=== PATIENT | male | born 1935 | race Caucasian/White ===

== ENCOUNTER 2020-06-16 15:26 | Inpatient (IN) ==
[2020-06-16] MEDS ORDERED: 0.9 % Sodium Chloride 1,000 ML IVC ONE (15:33)
[2020-06-16] MEDS ORDERED: Azithromycin 500 MG in 0.9 % Sodium Chloride 250 ML IVPB ONE (16:03)
[2020-06-16] MEDS ORDERED: cefTRIAXone 1,000 MG in Water for inj. (sterile) 10 ML IVP ONE (16:03)
[2020-06-16] MEDS ORDERED: Furosemide 40 MG/4 ML VIAL IVP ONE (16:03)
[2020-06-16 16:07] LABS: Basophils % 0.1 %; Hematocrit 38.8 % (37.5-50.1); Hemoglobin 13.1 g/dL (12.9-16.9); Immature Granulocytes % 0.4 % (0-4); Lymphocytes # 0.7 K/mcL (0.6-4.6); Lymphocytes % 5.6 %; Mean Corpuscular HGB Conc 33.8 g/dL (31.6-35.5); Mean Corpuscular Hemoglobin 31.6 pg (28.0-33.3); Mean Corpuscular Volume 93.7 fL (83.0-100.0); Mean Platelet Volume 10.3 fL (9.4-12.4); Monocytes # 0.7 K/mcL (0.0-1.3); Monocytes % 5.4 %; Neutrophils # 11.3 K/mcL (1.6-8.9); Platelet Count 375 K/mcL (140-400); Red Blood Count 4.14 M/mcL (4.19-5.50); Red Cell Distribution Width 12.7 % (11.5-14.5); Segmented Neutrophils % 88.5 %; White Blood Count 12.8 K/mcL (4.3-11.1)
[2020-06-16] MEDS ORDERED: Isovue-370 500 ML BOTTLE IVP ONE (16:21)
[2020-06-16 16:34] LABS: BUN/Creatinine Ratio 19 (6-26); Blood Urea Nitrogen 16 mg/dL (8-23); Calcium 10.4 mg/dL (8.6-10.3); Carbon Dioxide 24 mEq/L (23-29); Chloride 101 mEq/L (98-107); Glucose 209 mg/dL (70-105); Osmolality,Calculated 291 (280-300); Potassium 3.9 mEq/L (3.5-5.1); Sodium 137 mEq/L (136-145); eGFR For African Americans > 60 (> 60); eGFR For Non-African Americans > 60 (> 60)
[2020-06-16] MEDS ORDERED: Dexamethasone 4 MG/ML VIAL IVP STA (19:32)
[2020-06-16] MEDS ORDERED: Acetaminophen 325 MG TABLET PO PRN (20:28)
[2020-06-16] MEDS ORDERED: Ondansetron 4 MG/2 ML VIAL IVP PRN (20:28)
[2020-06-16] MEDS ORDERED: Naloxone 0.4 MG/ML INJ IVP PRN (20:28)
[2020-06-16] MEDS ORDERED: *HR* OxyCODONE Immed Rel 5 MG TABLET PO PRN (20:28)
[2020-06-16] MEDS ORDERED: *HR* Dextrose 50 % in Water (Vial) 50 ML VIAL IVP PRN (20:35)
[2020-06-16] MEDS ORDERED: Dextrose Gel 15 GM/37.5 ML TUBE PO PRN ×2 (20:35)
[2020-06-16] MEDS ORDERED: D5% in Water 1,000 ML IVC PRN (20:35)
[2020-06-16] MEDS ORDERED: *HR* Dabigatran 150 MG CAPSULE PO SCH (20:45)
[2020-06-16] MEDS: Insulin LISPRO 300 UNITS/3 ML VIAL SQ SCH (22:38)
[2020-06-16] MEDS: Insulin DETEMIR 100 UNIT/ML X5UNITS SQ SCH (22:40)
[2020-06-16 22:45] LABS: ABG Base Excess 2 mEq/L (-2 to 3); ABG HCO3 26 mEq/L (21-27); ABG Oxygen Saturation 98 % (95-98); ABG PCO2 38 mmHg (35-45); ABG PH 7.45 pH Units (7.32-7.45); ABG PO2 99 mmHg (85-104); ABG TCO2 27 mEq/L (20-26); Blood Gas Modality BiLevel
[2020-06-16] MEDS ORDERED: Perflutren Lipid Microsphere 1.3 ML in 0.9 % Sodium Chloride 8.7 ML IVP PRN (23:32)
[2020-06-16] MEDS ORDERED: Aspirin Enteric Coated 325 MG Tablet PO ONE (23:37)
[2020-06-17 05:51] LABS: Basophils % 0.1 %; Hematocrit 37.5 % (37.5-50.1); Hemoglobin 12.2 g/dL (12.9-16.9); Immature Granulocytes % 0.7 % (0-4); Lymphocytes # 0.4 K/mcL (0.6-4.6); Lymphocytes % 4.8 %; Mean Corpuscular HGB Conc 32.5 g/dL (31.6-35.5); Mean Corpuscular Hemoglobin 30.6 pg (28.0-33.3); Mean Platelet Volume 10.2 fL (9.4-12.4); Monocytes # 0.3 K/mcL (0.0-1.3); Monocytes % 3.5 %; Platelet Count 285 K/mcL (140-400); Red Blood Count 3.99 M/mcL (4.19-5.50); Red Cell Distribution Width 12.8 % (11.5-14.5); Segmented Neutrophils % 90.9 %; White Blood Count 8.8 K/mcL (4.3-11.1)
[2020-06-17 06:10] LABS: INR 1.5; Prothrombin Time 16.9 Seconds (9.4-12.1)
[2020-06-17 06:14] LABS: Alanine Aminotransferase 84 Units/L (7-52); Albumin 3.2 g/dL (3.5-5.7); Albumin/Globulin Ratio 1.1 (1.1-2.2); Alkaline Phosphatase 134 Units/L (34-104); Aspartate Amino Transferase 134 Units/L (13-39); BUN/Creatinine Ratio 28 (6-26); Bilirubin,Total 1.2 mg/dL (0.3-1.0); Blood Urea Nitrogen 20 mg/dL (8-23); Calcium 9.6 mg/dL (8.6-10.3); Carbon Dioxide 25 mEq/L (23-29); Chloride 105 mEq/L (98-107); Globulin 2.9 g/dL (2.4-3.5); Glucose 173 mg/dL (70-105); Lactate Dehydrogenase 503 Units/L (140-271); Magnesium 2.3 mg/dL (1.6-2.6); Osmolality,Calculated 295 (280-300); Phosphorous 2.5 mg/dL (2.7-4.5); Potassium 3.7 mEq/L (3.5-5.1); Sodium 139 mEq/L (136-145); Total Protein 6.1 g/dL (6.4-8.9); eGFR For African Americans > 60 (> 60); eGFR For Non-African Americans > 60 (> 60)
[2020-06-17] MEDS ORDERED: *HR* Heparin 5,000 UNIT/ML VIAL IVP PRN ×5 (06:45→23:00)
[2020-06-17] MEDS ORDERED: Heparin 25,000UNIT/250ML 1/2NS 25,000 UNIT/250 ML IV.SOLN IVC SCH (06:45)
[2020-06-17] MEDS: Aspirin Enteric Coated 81 MG Tablet PO SCH (08:08)
[2020-06-17] MEDS: Dexamethasone 4 MG/ML VIAL IVP SCH (08:09)
[2020-06-17] MEDS: Furosemide 40 MG/4 ML VIAL IVP SCH (08:09)
[2020-06-17] MEDS: Insulin LISPRO 300 UNITS/3 ML VIAL SQ SCH ×4 (08:44→20:14)
[2020-06-17] MEDS ORDERED: cefTRIAXone 1,000 MG in 0.9 % Sodium Chloride Mini Bag 100 ML IVP SCH (09:00)
[2020-06-17 10:16] LABS: C-Reactive Protein 183 mg/L (Less than 10)
[2020-06-17 10:17] LABS: Heparin anti-factor XA UFH < 0.04 IU/mL (0.30-0.70)
[2020-06-17 10:18] LABS: INR 1.4; Prothrombin Time 15.6 Seconds (9.4-12.1)
[2020-06-17] MEDS: Heparin 25,000UNIT/250ML 1/2NS 25,000 UNIT/250 ML IV.SOLN IVC SCH (10:23)
[2020-06-17] MEDS: Metoprolol XL (24 HR) Succ 25 MG TAB.ER.24H PO SCH (14:32)
[2020-06-17] MEDS ORDERED: Azithromycin 500 MG in 0.9 % Sodium Chloride 250 ML IVPB SCH (15:00)
[2020-06-17] MEDS: *HR* Heparin 5,000 UNIT/ML VIAL IVP PRN ×2 (17:03→22:37)
[2020-06-17] MEDS: Lactobacillus 1 EACH CAP.SPRINK PO SCH (19:43)
[2020-06-17] MEDS: Insulin DETEMIR 100 UNIT/ML X5UNITS SQ SCH (19:43)
[2020-06-18 01:35] LABS: BUN/Creatinine Ratio 34 (6-26); Blood Urea Nitrogen 25 mg/dL (8-23); Calcium 9.5 mg/dL (8.6-10.3); Carbon Dioxide 28 mEq/L (23-29); Chloride 104 mEq/L (98-107); Glucose 136 mg/dL (70-105); Osmolality,Calculated 298 (280-300); Potassium 3.3 mEq/L (3.5-5.1); Sodium 141 mEq/L (136-145); eGFR For African Americans > 60 (> 60); eGFR For Non-African Americans > 60 (> 60)
[2020-06-18] MEDS: *HR* Heparin 5,000 UNIT/ML VIAL IVP PRN (05:17)
[2020-06-18] MEDS: lisinopriL 5 MG TABLET PO SCH (09:45)
[2020-06-18] MEDS: Isosorbide MONOnitrate (24 HR) 30 MG TAB.ER.24H PO SCH (09:45)
[2020-06-18] MEDS: Finasteride 5 MG TABLET PO SCH (09:45)
[2020-06-18] MEDS: Aspirin Enteric Coated 81 MG Tablet PO SCH (09:45)
[2020-06-18] MEDS: Metoprolol XL (24 HR) Succ 25 MG TAB.ER.24H PO SCH (09:46)
[2020-06-18] MEDS: *HR* Digoxin 0.125 MG TABLET PO SCH (09:46)
[2020-06-18] MEDS: Dexamethasone 4 MG/ML VIAL IVP SCH (09:47)
[2020-06-18] MEDS: Lactobacillus 1 EACH CAP.SPRINK PO SCH ×2 (09:47→20:20)
[2020-06-18] MEDS: Furosemide 40 MG/4 ML VIAL IVP SCH (09:48)
[2020-06-18] MEDS: Insulin LISPRO 300 UNITS/3 ML VIAL SQ SCH ×4 (09:49→20:20)
[2020-06-18] MEDS: Heparin 25,000UNIT/250ML 1/2NS 25,000 UNIT/250 ML IV.SOLN IVC SCH (10:00)
[2020-06-18] MEDS ORDERED: *HR* Heparin 5,000 UNIT/ML VIAL IVP PRN ×2 (14:56→15:02)
[2020-06-18] MEDS ORDERED: Heparin 25,000UNIT/250ML 1/2NS 25,000 UNIT/250 ML IV.SOLN IVC SCH (15:02)
[2020-06-18] MEDS: cefTRIAXone 1,000 MG in Water for inj. (sterile) 10 ML IVP SCH (16:37)
[2020-06-18] MEDS: Spironolactone 25 MG TABLET PO SCH (16:37)
[2020-06-18] MEDS: *HR* Enoxaparin 80 MG/0.8 ML SYRINGE SQ SCH (16:37)
[2020-06-18] MEDS: Azithromycin 250 MG TABLET PO SCH (16:37)
[2020-06-18] MEDS: Insulin DETEMIR 100 UNIT/ML X5UNITS SQ SCH (20:21)
[2020-06-19] MEDS: *HR* Enoxaparin 80 MG/0.8 ML SYRINGE SQ SCH (06:10)
[2020-06-19 06:17] LABS: BUN/Creatinine Ratio 38 (6-26); Blood Urea Nitrogen 30 mg/dL (8-23); Carbon Dioxide 29 mEq/L (23-29); Chloride 104 mEq/L (98-107); Glucose 129 mg/dL (70-105); Osmolality,Calculated 302 (280-300); Potassium 3.9 mEq/L (3.5-5.1); Sodium 142 mEq/L (136-145); eGFR For African Americans > 60 (> 60); eGFR For Non-African Americans > 60 (> 60)
[2020-06-19] MEDS: Metoprolol XL (24 HR) Succ 25 MG TAB.ER.24H PO SCH (07:49)
[2020-06-19] MEDS: Aspirin Enteric Coated 81 MG Tablet PO SCH (07:49)
[2020-06-19] MEDS: Lactobacillus 1 EACH CAP.SPRINK PO SCH ×2 (07:49→19:57)
[2020-06-19] MEDS: Spironolactone 25 MG TABLET PO SCH (07:50)
[2020-06-19] MEDS: lisinopriL 5 MG TABLET PO SCH (07:51)
[2020-06-19] MEDS: *HR* Digoxin 0.125 MG TABLET PO SCH (07:52)
[2020-06-19] MEDS: Finasteride 5 MG TABLET PO SCH (07:52)
[2020-06-19] MEDS: Isosorbide MONOnitrate (24 HR) 30 MG TAB.ER.24H PO SCH (07:52)
[2020-06-19] MEDS: Furosemide 40 MG/4 ML VIAL IVP SCH (07:53)
[2020-06-19] MEDS: Dexamethasone 4 MG/ML VIAL IVP SCH (07:53)
[2020-06-19] MEDS: Insulin LISPRO 300 UNITS/3 ML VIAL SQ SCH ×4 (07:53→19:58)
[2020-06-19] MEDS: cefTRIAXone 1,000 MG in Water for inj. (sterile) 10 ML IVP SCH (16:43)
[2020-06-19] MEDS: Azithromycin 250 MG TABLET PO SCH (16:43)
[2020-06-19] MEDS ORDERED: 0.9 % Sodium Chloride 250 ML ONE (17:28)
[2020-06-19] MEDS ORDERED: *HR* Warfarin 2.5 MG TABLET PO ONE (18:00)
[2020-06-19] MEDS ORDERED: Warfarin perPT PO PRN (18:00)
[2020-06-19] MEDS: *HR* Enoxaparin 40 MG/0.4 ML SYRINGE SQ SCH (19:58)
[2020-06-19] MEDS: Insulin DETEMIR 100 UNIT/ML X5UNITS SQ SCH (19:58)
[2020-06-19] MEDS ORDERED: Apixaban 5 MG TABLET PO SCH (21:00)
[2020-06-20] MEDS ORDERED: *HR* Enoxaparin 40 MG/0.4 ML SYRINGE SQ SCH (06:00)
[2020-06-20 06:07] LABS: INR 1.2; Prothrombin Time 14.3 Seconds (9.4-12.1)
[2020-06-20 06:24] LABS: BUN/Creatinine Ratio 41 (6-26); Blood Urea Nitrogen 28 mg/dL (8-23); Calcium 9.5 mg/dL (8.6-10.3); Carbon Dioxide 30 mEq/L (23-29); Chloride 104 mEq/L (98-107); Glucose 68 mg/dL (70-105); Osmolality,Calculated 294 (280-300); Potassium 4.1 mEq/L (3.5-5.1); Sodium 140 mEq/L (136-145); eGFR For African Americans > 60 (> 60); eGFR For Non-African Americans > 60 (> 60)
[2020-06-20] MEDS: Insulin LISPRO 300 UNITS/3 ML VIAL SQ SCH ×4 (07:46→20:48)
[2020-06-20] MEDS: Dexamethasone 4 MG/ML VIAL IVP SCH (07:59)
[2020-06-20] MEDS: Lactobacillus 1 EACH CAP.SPRINK PO SCH ×2 (07:59→20:19)
[2020-06-20] MEDS: Spironolactone 25 MG TABLET PO SCH (07:59)
[2020-06-20] MEDS: Aspirin Enteric Coated 81 MG Tablet PO SCH (07:59)
[2020-06-20] MEDS: Isosorbide MONOnitrate (24 HR) 30 MG TAB.ER.24H PO SCH (08:00)
[2020-06-20] MEDS: *HR* Digoxin 0.125 MG TABLET PO SCH (08:00)
[2020-06-20] MEDS: Furosemide 40 MG/4 ML VIAL IVP SCH (08:00)
[2020-06-20] MEDS: *HR* Enoxaparin 40 MG/0.4 ML SYRINGE SQ SCH ×2 (08:00→20:18)
[2020-06-20] MEDS: Finasteride 5 MG TABLET PO SCH (08:01)
[2020-06-20] MEDS: Metoprolol XL (24 HR) Succ 25 MG TAB.ER.24H PO SCH (08:01)
[2020-06-20] MEDS: lisinopriL 5 MG TABLET PO SCH (08:01)
[2020-06-20] MEDS: cefTRIAXone 1,000 MG in Water for inj. (sterile) 10 ML IVP SCH (14:41)
[2020-06-20] MEDS: Azithromycin 250 MG TABLET PO SCH (14:42)
[2020-06-20] MEDS ORDERED: 0.9 % Sodium Chloride 250 ML ONE (17:49)
[2020-06-20] MEDS ORDERED: *HR* Warfarin 2.5 MG TABLET PO ONE (18:00)
[2020-06-20] MEDS ORDERED: Furosemide 20 MG/2 ML VIAL IVP ONE (20:00)
[2020-06-20] MEDS: Insulin DETEMIR 100 UNIT/ML X5UNITS SQ SCH (20:19)
[2020-06-21 07:32] LABS: INR 1.3; Prothrombin Time 14.4 Seconds (9.4-12.1)
[2020-06-21 07:47] LABS: BUN/Creatinine Ratio 38 (6-26); Blood Urea Nitrogen 30 mg/dL (8-23); Calcium 9.5 mg/dL (8.6-10.3); Carbon Dioxide 34 mEq/L (23-29); Chloride 100 mEq/L (98-107); Glucose 172 mg/dL (70-105); Osmolality,Calculated 298 (280-300); Potassium 4.1 mEq/L (3.5-5.1); Sodium 139 mEq/L (136-145); eGFR For African Americans > 60 (> 60); eGFR For Non-African Americans > 60 (> 60)
[2020-06-21] MEDS: Dexamethasone 4 MG/ML VIAL IVP SCH (08:45)
[2020-06-21] MEDS: Furosemide 40 MG/4 ML VIAL IVP SCH (08:45)
[2020-06-21] MEDS: lisinopriL 5 MG TABLET PO SCH (08:46)
[2020-06-21] MEDS: Finasteride 5 MG TABLET PO SCH (08:46)
[2020-06-21] MEDS: Isosorbide MONOnitrate (24 HR) 30 MG TAB.ER.24H PO SCH (08:46)
[2020-06-21] MEDS: *HR* Digoxin 0.125 MG TABLET PO SCH (08:46)
[2020-06-21] MEDS: Aspirin Enteric Coated 81 MG Tablet PO SCH (08:46)
[2020-06-21] MEDS: *HR* Enoxaparin 40 MG/0.4 ML SYRINGE SQ SCH ×2 (08:46→20:51)
[2020-06-21] MEDS: Lactobacillus 1 EACH CAP.SPRINK PO SCH ×2 (08:46→20:51)
[2020-06-21] MEDS: Insulin LISPRO 300 UNITS/3 ML VIAL SQ SCH ×4 (08:47→20:52)
[2020-06-21] MEDS: Azithromycin 250 MG TABLET PO SCH (15:33)
[2020-06-21] MEDS: cefTRIAXone 1,000 MG in Water for inj. (sterile) 10 ML IVP SCH (15:33)
[2020-06-21] MEDS ORDERED: *HR* Warfarin 3 MG TABLET PO ONE (18:00)
[2020-06-21] MEDS: Insulin DETEMIR 100 UNIT/ML X5UNITS SQ SCH (20:52)
[2020-06-22 06:08] LABS: INR 1.3; Prothrombin Time 14.6 Seconds (9.4-12.1)
[2020-06-22 06:33] LABS: BUN/Creatinine Ratio 46 (6-26); Blood Urea Nitrogen 38 mg/dL (8-23); Calcium 9.6 mg/dL (8.6-10.3); Carbon Dioxide 30 mEq/L (23-29); Chloride 102 mEq/L (98-107); Glucose 212 mg/dL (70-105); Osmolality,Calculated 303 (280-300); Potassium 4.4 mEq/L (3.5-5.1); Sodium 139 mEq/L (136-145); eGFR For African Americans > 60 (> 60); eGFR For Non-African Americans > 60 (> 60)
[2020-06-22] MEDS: lisinopriL 5 MG TABLET PO SCH (07:47)
[2020-06-22] MEDS: Lactobacillus 1 EACH CAP.SPRINK PO SCH ×2 (07:47→20:25)
[2020-06-22] MEDS: Finasteride 5 MG TABLET PO SCH (07:47)
[2020-06-22] MEDS: Aspirin Enteric Coated 81 MG Tablet PO SCH (07:48)
[2020-06-22] MEDS: *HR* Digoxin 0.125 MG TABLET PO SCH (07:48)
[2020-06-22] MEDS: Dexamethasone 4 MG/ML VIAL IVP SCH (07:48)
[2020-06-22] MEDS: Isosorbide MONOnitrate (24 HR) 30 MG TAB.ER.24H PO SCH (07:48)
[2020-06-22] MEDS: Furosemide 40 MG/4 ML VIAL IVP SCH (07:49)
[2020-06-22] MEDS: *HR* Enoxaparin 40 MG/0.4 ML SYRINGE SQ SCH (07:49)
[2020-06-22] MEDS: Insulin LISPRO 300 UNITS/3 ML VIAL SQ SCH ×4 (07:59→20:25)
[2020-06-22] MEDS: Azithromycin 250 MG TABLET PO SCH (15:16)
[2020-06-22] MEDS: cefTRIAXone 1,000 MG in Water for inj. (sterile) 10 ML IVP SCH (15:16)
[2020-06-22] MEDS ORDERED: Insulin Regular, Human 100 UNIT/ML SQ ONE (16:49)
[2020-06-22] MEDS: Insulin DETEMIR 100 UNIT/ML X5UNITS SQ SCH (17:51)
[2020-06-22] MEDS ORDERED: *HR* Warfarin 3 MG TABLET PO ONE (18:00)
[2020-06-22] MEDS: *HR* Dabigatran 150 MG CAPSULE PO SCH (20:25)
[2020-06-22] MEDS ORDERED: Insulin DETEMIR 100 UNIT/ML X5UNITS SQ ONE (21:12)
[2020-06-23] MEDS: Dexamethasone 4 MG/ML VIAL IVP SCH (07:32)
[2020-06-23] MEDS: Furosemide 40 MG/4 ML VIAL IVP SCH (07:34)
[2020-06-23] MEDS: *HR* Dabigatran 150 MG CAPSULE PO SCH ×2 (07:34→19:57)
[2020-06-23] MEDS: Lactobacillus 1 EACH CAP.SPRINK PO SCH ×2 (07:35→19:57)
[2020-06-23] MEDS: lisinopriL 5 MG TABLET PO SCH (07:35)
[2020-06-23] MEDS: *HR* Digoxin 0.125 MG TABLET PO SCH ×2 (07:35→08:06)
[2020-06-23] MEDS: Aspirin Enteric Coated 81 MG Tablet PO SCH (07:35)
[2020-06-23] MEDS: Finasteride 5 MG TABLET PO SCH (07:35)
[2020-06-23] MEDS: Isosorbide MONOnitrate (24 HR) 30 MG TAB.ER.24H PO SCH (07:35)
[2020-06-23] MEDS: Insulin LISPRO 300 UNITS/3 ML VIAL SQ SCH ×4 (07:43→19:51)
[2020-06-23 09:35] LABS: Basophils % 0.3 %; Eosinophils % 0.1 %; Hematocrit 44.9 % (37.5-50.1); Immature Granulocytes % 1.6 % (0-4); Lymphocytes # 1.3 K/mcL (0.6-4.6); Lymphocytes % 9.7 %; Mean Corpuscular HGB Conc 33.4 g/dL (31.6-35.5); Mean Corpuscular Hemoglobin 31.5 pg (28.0-33.3); Mean Corpuscular Volume 94.3 fL (83.0-100.0); Mean Platelet Volume 11.1 fL (9.4-12.4); Monocytes # 0.9 K/mcL (0.0-1.3); Nucleated Red Blood Cells 0.1 /100 WBC (0); Platelet Count 465 K/mcL (140-400); Red Blood Count 4.76 M/mcL (4.19-5.50); Red Cell Distribution Width 12.7 % (11.5-14.5); Segmented Neutrophils % 81.3 %
[2020-06-23 09:36] LABS: INR 1.2; Prothrombin Time 13.7 Seconds (9.4-12.1)
[2020-06-23 09:53] LABS: BUN/Creatinine Ratio 53 (6-26); Blood Urea Nitrogen 38 mg/dL (8-23); Calcium 10.1 mg/dL (8.6-10.3); Carbon Dioxide 27 mEq/L (23-29); Chloride 105 mEq/L (98-107); Glucose 90 mg/dL (70-105); Osmolality,Calculated 299 (280-300); Potassium 4.3 mEq/L (3.5-5.1); Sodium 140 mEq/L (136-145); eGFR For African Americans > 60 (> 60); eGFR For Non-African Americans > 60 (> 60)
[2020-06-23 10:16] LABS: Neutrophils # 10.8 K/mcL (1.6-8.9); White Blood Count 13.3 K/mcL (4.3-11.1)
[2020-06-23] MEDS: Insulin DETEMIR 100 UNIT/ML X5UNITS SQ SCH (19:57)
[2020-06-24 02:40] LABS: BUN/Creatinine Ratio 60 (6-26); Blood Urea Nitrogen 46 mg/dL (8-23); Calcium 9.5 mg/dL (8.6-10.3); Carbon Dioxide 25 mEq/L (23-29); Chloride 105 mEq/L (98-107); Glucose 173 mg/dL (70-105); Osmolality,Calculated 300 (280-300); Potassium 4.9 mEq/L (3.5-5.1); Sodium 137 mEq/L (136-145); eGFR For African Americans > 60 (> 60); eGFR For Non-African Americans > 60 (> 60)
[2020-06-24] MEDS: Insulin LISPRO 300 UNITS/3 ML VIAL SQ SCH ×4 (09:22→21:54)
[2020-06-24] MEDS: Aspirin Enteric Coated 81 MG Tablet PO SCH (09:24)
[2020-06-24] MEDS: Finasteride 5 MG TABLET PO SCH (09:24)
[2020-06-24] MEDS: Lactobacillus 1 EACH CAP.SPRINK PO SCH ×2 (09:24→21:54)
[2020-06-24] MEDS: *HR* Digoxin 0.125 MG TABLET PO SCH (09:24)
[2020-06-24] MEDS: *HR* Dabigatran 150 MG CAPSULE PO SCH ×2 (09:24→21:52)
[2020-06-24] MEDS: Dexamethasone 4 MG/ML VIAL IVP SCH (09:25)
[2020-06-24] MEDS: Isosorbide MONOnitrate (24 HR) 30 MG TAB.ER.24H PO SCH (09:42)
[2020-06-24] MEDS: lisinopriL 5 MG TABLET PO SCH (09:43)
[2020-06-24] MEDS: Furosemide 40 MG/4 ML VIAL IVP SCH (11:46)
[2020-06-24] MEDS: Furosemide 20 MG TABLET PO SCH (17:39)
[2020-06-24] MEDS: Insulin DETEMIR 100 UNIT/ML X5UNITS SQ SCH (21:54)
[2020-06-25 05:04] LABS: BUN/Creatinine Ratio 49 (6-26); Blood Urea Nitrogen 40 mg/dL (8-23); Calcium 9.1 mg/dL (8.6-10.3); Carbon Dioxide 27 mEq/L (23-29); Chloride 107 mEq/L (98-107); Glucose 154 mg/dL (70-105); Osmolality,Calculated 299 (280-300); Potassium 4.9 mEq/L (3.5-5.1); Sodium 138 mEq/L (136-145); eGFR For African Americans > 60 (> 60); eGFR For Non-African Americans > 60 (> 60)
[2020-06-25] MEDS: Insulin LISPRO 300 UNITS/3 ML VIAL SQ SCH ×4 (09:57→20:49)
[2020-06-25] MEDS: Lactobacillus 1 EACH CAP.SPRINK PO SCH ×2 (10:09→20:48)
[2020-06-25] MEDS: *HR* Digoxin 0.125 MG TABLET PO SCH (10:09)
[2020-06-25] MEDS: Finasteride 5 MG TABLET PO SCH (10:09)
[2020-06-25] MEDS: Aspirin Enteric Coated 81 MG Tablet PO SCH (10:09)
[2020-06-25] MEDS: *HR* Dabigatran 150 MG CAPSULE PO SCH ×2 (10:09→20:48)
[2020-06-25] MEDS: Furosemide 20 MG TABLET PO SCH (10:10)
[2020-06-25] MEDS: Isosorbide MONOnitrate (24 HR) 30 MG TAB.ER.24H PO SCH (10:10)
[2020-06-25] MEDS: Spironolactone 25 MG TABLET PO SCH (10:11)
[2020-06-25] MEDS: lisinopriL 5 MG TABLET PO SCH (10:13)
[2020-06-25] MEDS: Insulin DETEMIR 100 UNIT/ML X5UNITS SQ SCH ×2 (10:14→20:49)
[2020-06-25] MEDS: Dexamethasone 4 MG/ML VIAL IVP SCH (10:20)
[2020-06-26] MEDS: Insulin LISPRO 300 UNITS/3 ML VIAL SQ SCH (10:13)
[2020-06-26] MEDS: *HR* Dabigatran 150 MG CAPSULE PO SCH (11:11)
[2020-06-26] MEDS: Furosemide 20 MG TABLET PO SCH (11:11)
[2020-06-26] MEDS: Isosorbide MONOnitrate (24 HR) 30 MG TAB.ER.24H PO SCH (11:11)
[2020-06-26] MEDS: Aspirin Enteric Coated 81 MG Tablet PO SCH (11:11)
[2020-06-26] MEDS: Lactobacillus 1 EACH CAP.SPRINK PO SCH (11:11)
[2020-06-26] MEDS: lisinopriL 5 MG TABLET PO SCH (11:12)
[2020-06-26] MEDS: *HR* Digoxin 0.125 MG TABLET PO SCH (11:12)
[2020-06-26] MEDS: Spironolactone 25 MG TABLET PO SCH (11:12)
[2020-06-26] MEDS: Dexamethasone 4 MG/ML VIAL IVP SCH (11:13)
[2020-06-26] MEDS: Finasteride 5 MG TABLET PO SCH (11:13)
[2020-06-26] MEDS: Insulin DETEMIR 100 UNIT/ML X5UNITS SQ SCH (11:26)
[2020-06-26 17:30] VITALS: BP 99/63
== END 2020-06-26 17:48 | disposition home health service (06) | DRG 871 ==
LOC: EMEROOARM 15:26 → 2NENU 15:26 → SUATTDRO 20:28 → 2NENU 22:02 → SUATTDRO 06-17 18:37
PROVIDERS: ADMIT Student in an Organized Health Care Education/Training Program; ATTEND Internal Medicine

== ENCOUNTER 2022-05-01 12:10 | Observation (INO) ==
[2022-05-01 13:36] LABS: Basophils % 0.1 %; Hematocrit 45.7 % (37.5-50.1); Immature Granulocytes % 0.5 % (0-4); Lymphocytes # 1.7 K/mcL (0.6-4.6); Lymphocytes % 11.1 %; Mean Corpuscular HGB Conc 32.8 g/dL (31.6-35.5); Mean Corpuscular Hemoglobin 31.2 pg (28.0-33.3); Mean Platelet Volume 9.6 fL (9.4-12.4); Monocytes # 1.6 K/mcL (0.0-1.3); Monocytes % 10.8 %; Neutrophils # 11.7 K/mcL (1.6-8.9); Platelet Count 284 K/mcL (140-400); Red Blood Count 4.81 M/mcL (4.19-5.50); Red Cell Distribution Width 14.8 % (11.5-14.5); Segmented Neutrophils % 77.5 %; White Blood Count 15.1 K/mcL (4.3-11.1)
[2022-05-01 13:59] LABS: Calcium 10.4 mg/dL (8.6-10.3); Potassium 3.5 mEq/L (3.5-5.1)
[2022-05-01 14:05] LABS: Troponin I 0.06 ng/mL (< 0.04)
[2022-05-01] MEDS ORDERED: Iopamidol - 370 500 ML MLS IVP ONE (14:13)
[2022-05-01 14:19] LABS: Bilirubin,Urine Negative (Negative); Blood,Urine Trace (Negative); Clarity,Urine Clear (Clear); Color,Urine Light-Yellow (Yellow); Glucose,Urine (UA) Normal (Normal); Hyaline Casts,Urine Few per lpf (None Seen); Ketones,Urine Negative (Negative); Leukocyte Esterase,Urine Negative (Negative); Mucus,Urine Few per lpf (None-Few); Nitrite,Urine Negative (Negative); Protein,Urine Trace mg/dL (Neg-Trace); RBC,Urine 0-3 per hpf (0-3); Specific Gravity,Urine 1.011 (1.010-1.025); Squamous Epithelial Cell,Urine Few per hpf (None-Few); Urobilinogen,Urine Normal (Normal); WBC,Urine 0-3 per hpf (0-3)
[2022-05-01 14:28] LABS: Albumin/Globulin Ratio 1.2 (1.1-2.2); Bilirubin,Direct 0.4 mg/dL (0.0-0.2); Bilirubin,Indirect 1.2 mg/dL (0.0-1.0); Bilirubin,Total 1.6 mg/dL (0.3-1.0); Globulin 3.3 g/dL (2.4-3.5); Total Protein 7.3 g/dL (6.4-8.9)
[2022-05-01 15:34] LABS: INR 2.2; Prothrombin Time 24.3 Seconds (9.4-12.1)
[2022-05-01] MEDS ORDERED: Morphine Sulfate 2 MG/ML SYRINGE IVP ONE (16:59)
[2022-05-01] MEDS ORDERED: Naloxone 0.4 MG/ML INJ IVP PRN (18:09)
[2022-05-01] MEDS ORDERED: Dextrose Gel 15 GM/37.5 ML TUBE PO PRN ×2 (18:12)
[2022-05-01] MEDS ORDERED: D5% in Water 1,000 ML IVC PRN (18:12)
[2022-05-01] MEDS ORDERED: *HR* Dextrose 50 % in Water (Syg) 50 ML SYRINGE IVP PRN (18:12)
[2022-05-01] MEDS: Insulin LISPRO 300 UNITS/3 ML VIAL SUBQ SCH (21:02)
[2022-05-02] MEDS: Insulin LISPRO 300 UNITS/3 ML VIAL SUBQ SCH ×4 (07:19→21:44)
[2022-05-02] MEDS: Metoprolol XL (24 HR) Succ 25 MG TAB.ER.24H PO SCH (08:41)
[2022-05-02] MEDS ORDERED: lisinopriL 5 MG TABLET PO SCH (09:00)
[2022-05-02] MEDS: Spironolactone 25 MG TABLET PO SCH (09:21)
[2022-05-02] MEDS: Finasteride 5 MG TABLET PO SCH (09:21)
[2022-05-02] MEDS: Bumetanide 1 MG TABLET PO SCH ×2 (09:22→21:43)
[2022-05-02] MEDS: Apixaban 2.5 MG TABLET PO SCH (09:22)
[2022-05-02 10:21] LABS: Basophils % 0.2 %; Eosinophils % 0.2 %; Hematocrit 45.5 % (37.5-50.1); Hemoglobin 14.7 g/dL (12.9-16.9); Immature Granulocytes % 0.5 % (0-4); Lymphocytes # 1.8 K/mcL (0.6-4.6); Lymphocytes % 14.9 %; Mean Corpuscular HGB Conc 32.3 g/dL (31.6-35.5); Mean Corpuscular Hemoglobin 30.9 pg (28.0-33.3); Mean Corpuscular Volume 95.8 fL (83.0-100.0); Mean Platelet Volume 9.7 fL (9.4-12.4); Monocytes # 1.5 K/mcL (0.0-1.3); Monocytes % 12.1 %; Neutrophils # 8.8 K/mcL (1.6-8.9); Platelet Count 295 K/mcL (140-400); Red Blood Count 4.75 M/mcL (4.19-5.50); Red Cell Distribution Width 14.5 % (11.5-14.5); Segmented Neutrophils % 72.1 %; White Blood Count 12.3 K/mcL (4.3-11.1)
[2022-05-02 10:45] LABS: Albumin 3.5 g/dL (3.5-5.7); Albumin/Globulin Ratio 1.1 (1.1-2.2); Bilirubin,Direct 0.4 mg/dL (0.0-0.2); Bilirubin,Total 1.4 mg/dL (0.3-1.0); Globulin 3.2 g/dL (2.4-3.5); Total Protein 6.7 g/dL (6.4-8.9)
[2022-05-02 10:48] LABS: Calcium 9.7 mg/dL (8.6-10.3); Potassium 3.4 mEq/L (3.5-5.1)
[2022-05-02 12:30] LABS: Bilirubin,Urine Negative (Negative); Blood,Urine Moderate (Negative); Clarity,Urine Clear (Clear); Color,Urine Light-Yellow (Yellow); Glucose,Urine (UA) Normal (Normal); Ketones,Urine Negative (Negative); Leukocyte Esterase,Urine Negative (Negative); Mucus,Urine Few per lpf (None-Few); Nitrite,Urine Negative (Negative); PH,Urine 6.5 pH Units (5.0-8.0); Protein,Urine Negative (Neg-Trace); RBC,Urine 50-100 per hpf (0-3); Specific Gravity,Urine 1.014 (1.010-1.025); Squamous Epithelial Cell,Urine Few per hpf (None-Few); Urobilinogen,Urine Normal (Normal)
[2022-05-02] MEDS: cefTRIAXone 1,000 MG in 0.9 % Sodium Chloride 10 ML IVP SCH (16:00)
[2022-05-02] MEDS: polyethylene glycoL 3350 17 GM POWD.PACK PO PRN (17:04)
[2022-05-02 20:23] LABS: Estimated Average Glucose 143 mg/dl; Hemoglobin A1C 6.6 %
[2022-05-02] MEDS: Isosorbide MONOnitrate (24 HR) 30 MG TAB.ER.24H PO SCH (21:10)
[2022-05-02] MEDS: Insulin DETEMIR 100 UNIT/ML X5UNITS SUBQ SCH (21:44)
[2022-05-02] MEDS: Sennosides/Docusate Sodium TABLET PO SCH (21:44)
[2022-05-03 03:20] LABS: Basophils % 0.1 %; Eosinophils # 0.1 K/mcL (0.0-0.6); Eosinophils % 0.8 %; Hematocrit 44.6 % (37.5-50.1); Hemoglobin 14.6 g/dL (12.9-16.9); Immature Granulocytes % 0.4 % (0-4); Lymphocytes # 2.1 K/mcL (0.6-4.6); Lymphocytes % 17.2 %; Mean Corpuscular HGB Conc 32.7 g/dL (31.6-35.5); Mean Corpuscular Hemoglobin 31.1 pg (28.0-33.3); Mean Corpuscular Volume 95.1 fL (83.0-100.0); Mean Platelet Volume 9.8 fL (9.4-12.4); Monocytes # 1.6 K/mcL (0.0-1.3); Monocytes % 13.1 %; Neutrophils # 8.2 K/mcL (1.6-8.9); Platelet Count 295 K/mcL (140-400); Red Blood Count 4.69 M/mcL (4.19-5.50); Red Cell Distribution Width 14.6 % (11.5-14.5); Segmented Neutrophils % 68.4 %
[2022-05-03 03:38] LABS: Albumin 3.3 g/dL (3.5-5.7); Albumin/Globulin Ratio 1.1 (1.1-2.2); Bilirubin,Total 1.1 mg/dL (0.3-1.0); Calcium 9.4 mg/dL (8.6-10.3); Globulin 3.1 g/dL (2.4-3.5); Potassium 3.3 mEq/L (3.5-5.1); Total Protein 6.4 g/dL (6.4-8.9)
[2022-05-03] MEDS: Insulin LISPRO 300 UNITS/3 ML VIAL SUBQ SCH ×4 (07:53→22:03)
[2022-05-03] MEDS: Isosorbide MONOnitrate (24 HR) 30 MG TAB.ER.24H PO SCH (10:23)
[2022-05-03] MEDS: Apixaban 2.5 MG TABLET PO SCH (10:23)
[2022-05-03] MEDS: Spironolactone 25 MG TABLET PO SCH (10:24)
[2022-05-03] MEDS: *HR* Digoxin 0.125 MG TABLET PO SCH (10:24)
[2022-05-03] MEDS: lisinopriL 5 MG TABLET PO SCH (10:25)
[2022-05-03] MEDS: Aspirin 81 MG TAB.CHEW PO SCH (10:25)
[2022-05-03] MEDS: Finasteride 5 MG TABLET PO SCH (10:25)
[2022-05-03] MEDS: Bumetanide 1 MG TABLET PO SCH ×2 (10:25→22:03)
[2022-05-03] MEDS: Sennosides/Docusate Sodium TABLET PO SCH ×2 (10:27→22:03)
[2022-05-03] MEDS: Metoprolol XL (24 HR) Succ 25 MG TAB.ER.24H PO SCH (10:27)
[2022-05-03] MEDS: polyethylene glycoL 3350 17 GM POWD.PACK PO PRN (10:33)
[2022-05-03] MEDS ORDERED: *HR* HYDROcodone/Acet 5/325 mg TABLET PO PRN (14:08)
[2022-05-03] MEDS: cefTRIAXone 1,000 MG in 0.9 % Sodium Chloride 10 ML IVP SCH (18:33)
[2022-05-03] MEDS: Insulin DETEMIR 100 UNIT/ML X5UNITS SUBQ SCH (22:04)
[2022-05-04 02:51] LABS: Basophils % 0.2 %; Eosinophils # 0.1 K/mcL (0.0-0.6); Hematocrit 42.7 % (37.5-50.1); Hemoglobin 14.2 g/dL (12.9-16.9); Immature Granulocytes % 0.5 % (0-4); Lymphocytes % 16.3 %; Mean Corpuscular HGB Conc 33.3 g/dL (31.6-35.5); Mean Corpuscular Hemoglobin 31.6 pg (28.0-33.3); Mean Corpuscular Volume 94.9 fL (83.0-100.0); Mean Platelet Volume 9.9 fL (9.4-12.4); Monocytes # 1.4 K/mcL (0.0-1.3); Monocytes % 11.2 %; Neutrophils # 8.8 K/mcL (1.6-8.9); Platelet Count 298 K/mcL (140-400); Red Cell Distribution Width 14.2 % (11.5-14.5); Segmented Neutrophils % 70.8 %; White Blood Count 12.5 K/mcL (4.3-11.1)
[2022-05-04 03:04] LABS: Calcium 9.3 mg/dL (8.6-10.3)
[2022-05-04] MEDS ORDERED: Bisacodyl 10 MG RECTAL SUPPOSITORY RC ONE (04:45)
[2022-05-04] MEDS: Bumetanide 1 MG TABLET PO SCH (09:35)
[2022-05-04] MEDS: Sennosides/Docusate Sodium TABLET PO SCH (09:35)
[2022-05-04] MEDS: Isosorbide MONOnitrate (24 HR) 30 MG TAB.ER.24H PO SCH (09:35)
[2022-05-04] MEDS: Spironolactone 25 MG TABLET PO SCH (09:35)
[2022-05-04] MEDS: Metoprolol XL (24 HR) Succ 25 MG TAB.ER.24H PO SCH (09:35)
[2022-05-04] MEDS: Finasteride 5 MG TABLET PO SCH (09:36)
[2022-05-04] MEDS: Insulin LISPRO 300 UNITS/3 ML VIAL SUBQ SCH ×3 (09:36→17:20)
[2022-05-04] MEDS: lisinopriL 5 MG TABLET PO SCH (09:36)
[2022-05-04] MEDS: Aspirin 81 MG TAB.CHEW PO SCH (09:36)
[2022-05-04] MEDS: Apixaban 2.5 MG TABLET PO SCH (09:36)
[2022-05-04] MEDS: *HR* Digoxin 0.125 MG TABLET PO SCH (09:40)
[2022-05-04 12:01] VITALS: BP 121/76; PULSE 63; TEMP 98.5
[2022-05-04 15:28] VITALS: O2SAT 94
== END 2022-05-04 18:15 | disposition home health service (06) ==
LOC: EMEROOARM 12:10 → 4WAOSI 12:10 → SUATTDRO 17:20 → 4WAOSI 18:44 → 2ANU 05-02 13:58
PROVIDERS: ADMIT Internal Medicine; ATTEND Student in an Organized Health Care Education/Training Program